=== PATIENT | female | born 1955 | race Caucasian/White ===

== ENCOUNTER 2016-11-07 20:39 | Emergency (ER) | payer BC ==
[2016-11-07] MEDS ORDERED: OPTIRAY 350 100 ML VIAL HMH IV ONE (20:40)
[2016-11-08] MEDS ORDERED: SODIUM CHLORIDE 0.9% 100 ML IV ONE (00:11)
[2016-11-08] MEDS ORDERED: DEXAMETHASONE 4 MG/ML VIAL ONE (00:11)
[2016-11-08] MEDS ORDERED: CEFTRIAXONE 1 GM VIAL ONE (00:11)
[2016-11-08] MEDS ORDERED: DUONEB INH ONE (03:51)
== END 2016-11-08 00:34 | disposition home or self-care (01) ==
LOC: ER 20:39
DX: J02.0 Streptococcal pharyngitis (principal); K57.92 Diverticulitis of intestine, part unspecified, without perforation or abscess without bleeding; F41.1 Generalized anxiety disorder; Z79.899 Other long term (current) drug therapy
CPT/HCPCS: 70491; 87880; 96374; 96375; 99285; J0696; Q9967